=== PATIENT | male | born 1980 | race Caucasian/White ===

== ENCOUNTER 2016-09-12 13:43 | Emergency (ER) | payer MEDICAID | END 2016-09-12 14:39 | disposition home or self-care (01) | LOC: ER 13:43 | DX: M96.89 Other intraoperative and postprocedural complications and disorders of the musculoskeletal system (principal); Y83.8 Other surgical procedures as the cause of abnormal reaction of the patient, or of later complication, without mention of misadventure at the time of the procedure; Y79.3 Surgical instruments, materials and orthopedic devices (including sutures) associated with adverse incidents; M25.462 Effusion, left knee; F19.21 Other psychoactive substance dependence, in remission ==